=== PATIENT | female | born 1995 | race Caucasian/White ===

== ENCOUNTER 2022-10-17 12:37 | Emergency (ER) | payer BC, MEDICAID, SELFPAY ==
--- NOTE | ~2022-10-17 | CT_ITS ---
EXAMINATION: CT ABDOMEN AND PELVIS WITHOUT CONTRAST CLINICAL INFORMATION: Flank pain with urination. COMPARISON: None TECHNIQUE: Multidetector volumetric imaging was performed from the superior aspect of the liver through the pubic symphysis. Sagittal and coronal reformatted images were obtained on the technologist's workstation. This CT examination was performed using dose optimization techniques as appropriate, variously including the following: *Automated exposure control *Adjustment of mA and/or kV according to patient size (this includes techniques or standardized protocols for targeted exams where dose is matched to indication/reason for exam; i.e. extremities or head) *Use of iterative reconstruction technique DLP: 252 mGy-cm FINDINGS: LUNG BASES: The visualized lung bases are unremarkable. LIVER, GALLBLADDER, AND BILIARY TREE: The liver is normal in size, shape, and attenuation. No focal hepatic lesion or biliary ductal dilatation is present. The gallbladder is unremarkable with no evidence of radiopaque gallstones, gallbladder wall thickening, or obvious pericholecystic inflammatory changes. PANCREAS: Unremarkable. SPLEEN: Unremarkable. ADRENAL GLANDS: Unremarkable. KIDNEYS AND URETERS: The kidneys are normal in size, shape, and attenuation. No hydronephrosis, hydroureter, or calculi seen. No perinephric stranding. BLADDER: Unremarkable. GASTROINTESTINAL TRACT: The small and large bowel are unremarkable. The appendix is unremarkable. ABDOMINAL WALL: No significant hernia is appreciated. LYMPH NODES: Normal. VASCULAR: Unremarkable. PELVIC VISCERA: Uterus is anteverted. There is a right adnexal cyst measuring 2.5 cm. Density measurement 7 Hounsfield units, simple fluid. No inflammatory changes in the adnexa. Small volume of simple fluid in the cul-de-sac which can be physiologic. OSSEOUS STRUCTURES: Unremarkable. CT/CT abdomen pelvis wo IV con IMPRESSION: 1. No acute abnormality CT scan abdomen pelvis. Normal kidneys, ureter and bladder. 2. 2.5 cm right adnexal cyst. Fleischner guidelines were followed.
--- NOTE | ~2022-10-17 | US_ITS ---
EXAMINATION: US PELVIS CLINICAL INFORMATION: Abdominal pain with question of a portion of ovary COMPARISON: CT abdomen pelvis earlier today TECHNIQUE: Ultrasound of the pelvis is performed using both transabdominal and transvaginal transducers along with Doppler. Transvaginal imaging is performed due to inadequate visualization transabdominally. FINDINGS: Uterus: The uterus is anteverted and measures 7.8 x 2.8 x 3.8 cm. The double wall endometrial thickness is 0.8 mm. The uterus is smooth in contour and has normal myometrial echogenicity. No visible fibroid. Nabothian cysts are present in the cervix. Adnexa: Both ovaries are visualized. There is normal color flow to the adnexa. There is no ovarian torsion. There is no pelvic ascites or fluid collection. Right ovary measures 3.2 x 2.8 x 2.3 cm for a volume of 10.8 mL which includes a 2.7 x 1.7 x 2.2 cm benign simple left ovarian cyst. Left ovary measures 2.8 x 1.4 x 1.5 cm for a volume of 3.1 mL and appears normal US/US pelvic ovarian doppler IMPRESSION: Negative exam. Benign right ovarian cyst needs no further follow-up. No evidence of ovarian torsion.
--- NOTE | ~2022-10-17 | US_ITS ---
EXAMINATION: US PELVIS CLINICAL INFORMATION: Abdominal pain with question of a portion of ovary COMPARISON: CT abdomen pelvis earlier today TECHNIQUE: Ultrasound of the pelvis is performed using both transabdominal and transvaginal transducers along with Doppler. Transvaginal imaging is performed due to inadequate visualization transabdominally. FINDINGS: Uterus: The uterus is anteverted and measures 7.8 x 2.8 x 3.8 cm. The double wall endometrial thickness is 0.8 mm. The uterus is smooth in contour and has normal myometrial echogenicity. No visible fibroid. Nabothian cysts are present in the cervix. Adnexa: Both ovaries are visualized. There is normal color flow to the adnexa. There is no ovarian torsion. There is no pelvic ascites or fluid collection. Right ovary measures 3.2 x 2.8 x 2.3 cm for a volume of 10.8 mL which includes a 2.7 x 1.7 x 2.2 cm benign simple left ovarian cyst. Left ovary measures 2.8 x 1.4 x 1.5 cm for a volume of 3.1 mL and appears normal US/US pelvic and transvaginal IMPRESSION: Negative exam. Benign right ovarian cyst needs no further follow-up. No evidence of ovarian torsion.
[2022-10-17 15:01] VITALS: BP 105/61; PULSE 82; RESP 16; TEMP 36.4; O2SAT 100; BMI 21.2
--- NOTE | 2022-10-17 15:01 | ED.GENADULT ---
HPI - General Adult General Chief complaint: Urogenital-Female <Shanta Wheeler MD - Last Filed: 10/17/22 15:05> Stated complaint: Passing Kidney Stone <Shanta Wheeler MD - Last Filed: 10/17/22 15:05> Time Seen by Provider: 10/17/22 19:48 <Shanta Wheeler MD - Last Filed: 10/17/22 15:05> Source: patient <JOY Sherman - Last Filed: 10/17/22 20:12> Mode of arrival: ambulatory <JOY Sherman - Last Filed: 10/17/22 20:12> Limitations: no limitations <JOY Sherman - Last Filed: 10/17/22 20:12> History of Present Illness HPI narrative: 26 year old female presents w/ 1 day of colicky right flank pain intermittent and severe in nature. Tells me pain is sharp 4/10 w/o radiation. Hx of stones which felt similar. Hasent taken meds for this at home. Reports subjective fevers/ chills. Reports burning with urination. No concerns for STDs or . Patient denies vomiting/fevers, numbness, tingling, chest pain, shortness of breath, saddle paresthesias, hx of back surgeries, hx of IVDA, urine/bowel incontinence/ retention, vaginal dc or bleeding, pain with intercourse, hx of ovarian cyst. <JOY Sherman - Last Filed: 10/17/22 20:12> Related Data Allergies/adverse reactions: Allergies Allergy/AdvReac Type Severity Reaction Status Date / Time No Known Allergies Allergy Verified 10/17/22 15:00 <Shanta Wheeler MD - Last Filed: 10/17/22 15:05> Review of Systems Review of Systems: Constitutional : No Weight loss, + Fever, + Chills, + Fatigue, + Malaise ENT/Mouth : No sore throat, No Rhinorrhea Eyes: No Eye Pain, No Swelling, No Redness Cardiovascular : No Chest Pain, No SOB, No Dyspnea on Exertion, No Orthopnea, No Edema, No Palpitations Respiratory : No Cough, No Sputum, No Wheezing Gastrointestinal : No Nausea, No Vomiting, No Diarrhea, No Constipation, No abdominal Pain, No Hematochezia, No Melena Genitourinary : + Dysuria, No Urinary Frequency, No Hematuria, Musculoskeletal : No joint pain, No Myalgias, No Joint Swelling, +flank pain Skin : No Skin Lesions, No rash Neuro : No Weakness, No Numbness, No Dizziness, No Headache Psych : No Anxiety/Panic, No Depression All other systems reviewed and are negative <JOY Sherman - Last Filed: 10/17/22 20:12> Yes all other systems are reviewed and are negative <JOY Sherman - Last Filed: 10/17/22 20:12> [facility] Past Medical History Attestation statement: The following information was validated with the patient. <JOY Sherman - Last Filed: 10/17/22 20:12> Source: old records reviewed and nursing notes reviewed <JOY Sherman - Last Filed: 10/17/22 20:12> Social History Social History: Social History Advance Directives: No Advance Directives Information Provided: No <Shanta Wheeler MD - Last Filed: 10/17/22 15:05> Physical Exam ED Vital Signs: Vital Signs - 24 hr 10/17/22 15:01 Temperature 97.6 F Pulse Rate 82 Respiratory Rate 16 Blood Pressure 105/61 Pulse Oximetry 100 Oxygen Delivery Method Room Air BMI result Body Mass Index 21.2 <Shanta Wheeler MD - Last Filed: 10/17/22 15:05> Vital Signs - 24 hr 10/17/22 15:01 Temperature 97.6 F Pulse Rate 82 Respiratory Rate 16 Blood Pressure 105/61 Pulse Oximetry 100 Oxygen Delivery Method Room Air BMI result Body Mass Index 21.2 vss <JOY Sherman - Last Filed: 10/17/22 20:12> Appearance: Alert.? Oriented X3.? No acute distress.?Non toxic appearing Head: Normocephalic, atraumatic, no step-offs or deformities Eyes: Pupils equal, round and reactive to light.? CVS: Normal heart rate and rhythm.? Pulses normal.? Respiratory: No respiratory distress.? Breath sounds normal.? Abdomen: Soft and nontender.? Skin: Skin warm and dry.? Normal skin color.? Normal skin turgor.? Extremities: No lower extremity edema.? No calf ttp. 5/5 strength to bilateral upper and lower extremities Back: No CVA tenderness bilaterally Neuro: Oriented X 3.? No motor deficit.? No sensory deficit. CN 2-12 intact <JOY Sherman - Last Filed: 10/17/22 20:12> Course Course Course Narrative: 26F had burning with urination and now having right flank pain in the kidney area and +hx of renal colic. Patient denies vomiting/fevers but having nausea and chills VS reviewed. GEN: Appears well, NAD HEENT: NC/At, Ears, wnl, pharynx wnl, no adenopathy. LUNGS: CTAB w/o wheeze/rhonchi/rales CVS: RRR, no murmurs ABD: NT/ND EXT: warm, dry Suspect pyelonephritis>>renal colic. <Shanta Wheeler MD - Last Filed: 10/17/22 15:05> Reevaluation(s) Reevaluation #1: UA clean. Preg negative. Pelvic and transvaginal and ovarian w/ Doppler no signs of torsion, benign r. ovarian cyst no need for further fu, informed patient of results and advised to fu w/ obgyn. Adnexal cyst on abd and pelvis ct no other findings no sins of stones or pylo. Likely cystitis or MSK pain. Plan dc home with PCP and OBGYN fu. Advised to return w/ new or worseneing sx. Comfortable w/ dc with strict return percautions. <JOY Sherman - Last Filed: 10/17/22 20:12> Time: 20:11 <JOY Sherman - Last Filed: 10/17/22 20:12> Medical Decision Making MDM Narrative Medical decision making narrative: 1997 26 year old f w/ r. flank pain and dysuria X1 day. hx of stones PE benign Likley cystitis vs uti vs stone. Unlikley pylo. No signs of acute abdomen. Unlikley ectopic or torsion. Will r/o ovarian cysts Plan- urine imaging <JOY Sherman - Last Filed: 10/17/22 20:12> Medical Records Medical records reviewed: Yes I reviewed the patient's medical records. <JOY Sherman - Last Filed: 10/17/22 20:12> Lab Data Lab results reviewed: Yes I reviewed the patient's lab results. <JOY Sherman - Last Filed: 10/17/22 20:12> Labs: Lab Results 10/17/22 10/17/22 Range/Units 15:15 15:15 Urine Color Yellow Urine Appearance Cloudy Urine pH 7.5 (5.0-9.0) Ur Specific [place] 1.010 (1.005-1.025) Urine Protein Negative (Neg-Trace) mg/dL Urine Glucose (UA) Negative (Negative) mg/dL Urine Ketones Negative (Negative) mg/dL Urine Blood Negative (Negative) Urine Nitrite Negative (Negative) Ur Leukocyte Esterase Negative (Negative) Urine Test NEGATIVE (NEGATIVE) <Shanta Wheeler MD - Last Filed: 10/17/22 15:05> Lab Results 10/17/22 10/17/22 Range/Units 15:15 15:15 Urine Color Yellow Urine Appearance Cloudy Urine pH 7.5 (5.0-9.0) Ur Specific [place] 1.010 (1.005-1.025) Urine Protein Negative (Neg-Trace) mg/dL Urine Glucose (UA) Negative (Negative) mg/dL Urine Ketones Negative (Negative) mg/dL Urine Blood Negative (Negative) Urine Nitrite Negative (Negative) Ur Leukocyte Esterase Negative (Negative) Urine Test NEGATIVE (NEGATIVE) <JOY Sherman - Last Filed: 10/17/22 20:12> Critical Care Time Critical Care Time Critical Care Time: No <JOY Sherman - Last Filed: 10/17/22 20:12> Discharge Plan Discharge Clinical Impression: Cystitis, Flank pain, Biliary colic, Ovarian cyst <Shanta Wheeler MD - Last Filed: 10/17/22 15:05> Patient Disposition: Home, Self-Care <Shanta Wheeler MD - Last Filed: 10/17/22 15:05> Instructions: Urinary Tract Infection in Women (ED), Abdominal Pain (ED), Flank Pain (ED) <Shanta Wheeler MD - Last Filed: 10/17/22 15:05> Additional Instructions: Take your medications as prescribed. If you were prescribed antibiotics today, it is important that you take your medication to their entirety, do not skip any doses, do not finish them early. Follow-up with your primary care provider this week. Follow up with OBGYN Return to the emergency department with new or worsening symptoms. In case of emergency call 911 You can take ibuprofen every 6 hours tylenol every 4 hours as needed for pain or discomfort Urine showed no infection. CT/CT abdomen pelvis wo IV con IMPRESSION: 1.? No acute abnormality CT scan abdomen pelvis. Normal kidneys, ureter and bladder. 2.? 2.5 cm right adnexal cyst. ? Fleischner guidelines were followed .US/US pelvic ovarian doppler IMPRESSION: Negative exam. Benign right ovarian cyst needs no further follow-up. No evidence of ovarian torsion. ? <Shanta Wheeler MD - Last Filed: 10/17/22 15:05> Referrals: Charity Rick MD [Primary Care Provider] - 2 days Grayson Nguyễn MD [Physician] - 2 weeks <Shanta Wheeler MD - Last Filed: 10/17/22 15:05> Stand Alone Forms: Work/School Release <Shanta Wheeler MD - Last Filed: 10/17/22 15:05>
[2022-10-17 15:23] LABS: Appearance Urine Cloudy; Color Urine Yellow; Glucose Urine UA Negative (Negative); Leukocyte Esterase Urine Negative (Negative); Nitrite Urine Negative (Negative); PH 7.5 (5.0-9.0); Urine Blood Negative (Negative); Urine Ketones Negative (Negative); Urine Protein Negative (Neg-Trace)
[2022-10-17 15:25] LABS: UPreg QC Valid YES; Urine Pregnancy NEGATIVE (NEGATIVE)
--- NOTE | 2022-10-17 19:48 | ED_ITS ---
HPI - Female Genitourinary General Chief complaint: Urogenital-Female Stated complaint: Passing Kidney Stone Time Seen by Provider: 10/17/22 19:48 Source: patient Mode of arrival: ambulatory Limitations: no limitations Related Data Allergies Allergy/AdvReac Type Severity Reaction Status Date / Time No Known Allergies Allergy Verified 10/17/22 15:00 Physical Exam Vital Signs: Vital Signs: Last Vital Signs Temp 97.6 F 10/17/22 15:01 Pulse 82 10/17/22 15:01 Resp 16 10/17/22 15:01 BP 105/61 10/17/22 15:01 Pulse Ox 100 10/17/22 15:01 O2 Del Method 10/17/22 15:01 BMI result Body Mass Index 21.2 MDM - Female Genitourinary Lab Data Labs: Lab Results 10/17/22 10/17/22 Range/Units 15:15 15:15 Urine Color Yellow Urine Appearance Cloudy Urine pH 7.5 (5.0-9.0) Ur Specific [place] 1.010 (1.005-1.025) Urine Protein Negative (Neg-Trace) mg/dL Urine Glucose (UA) Negative (Negative) mg/dL Urine Ketones Negative (Negative) mg/dL Urine Blood Negative (Negative) Urine Nitrite Negative (Negative) Ur Leukocyte Esterase Negative (Negative) Urine Test NEGATIVE (NEGATIVE)
== END 2022-10-17 20:28 | disposition home or self-care (01) ==
PROVIDERS: Student in an Organized Health Care Education/Training Program; Emergency Provider Emergency Medicine; PCP Pediatrics
DX: N20.0 Calculus of kidney (principal); R10.9 Unspecified abdominal pain; R10.2 Pelvic and perineal pain; Z79.899 Other long term (current) drug therapy
CPT/HCPCS: 74176; 76830; 76856; 81003; 81025; 93975; 99282; 99284

== ENCOUNTER 2023-01-07 01:44 | Emergency (ER) | payer BC, MEDICAID, SELFPAY ==
[2023-01-07 01:51] VITALS: BP 107/67; PULSE 80; RESP 17; TEMP 36.5; O2SAT 97; BMI 19.1
[2023-01-07 02:56] LABS: MANUAL DIFF FLAG NO
[2023-01-07 02:57] LABS: Basophils Percent Auto 0.3 % (0-2); Eosinophils Percent Auto 0.3 % (0-4); Hematocrit 40.4 % (37.0-47.0); Imm Gran Abs Auto 0.01 X10*3/uL (0.00-0.03); Imm Gran Pct Auto 0.1 % (0.0-0.4); Lymphocytes Absolute Auto 2.1 X10*3/uL (1.2-4.9); Lymphocytes Percent Auto 27.1 % (20-40); Mean Corpuscular HGB Conc 34.7 g/dl (31.0-35.0); Mean Corpuscular Hemoglobin 29.5 pg (27.0-33.0); Mean Corpuscular Volume 85.2 fL (80.0-98.0); Mean Platelet Volume 10.5 fL (9.4-12.3); Monocytes Absolute Auto 0.5 X10*3/uL (0.1-1.2); Neutrophils Absolute Auto 5.2 x10*3/uL (2.0-8.3); Neutrophils Percent Auto 66.2 % (45-73); Platelet Count 238 X10*3/uL (160-400); Red Blood Count 4.74 X10*6/uL (4.20-5.50); Red Cell Distribution Width 12.1 % (11.0-16.0); White Blood Count 7.8 X10*3/uL (4.8-10.8)
[2023-01-07 03:14] LABS: COVID-19 Test Negative (Negative); IDNOW Serial# BCCEAD1C
[2023-01-07 03:15] LABS: Alanine Aminotransferase 14 U/L (0-31); Albumin Level 4.6 g/dL (3.5-5.0); Alkaline Phosphatase 39 U/L (39-117); Anion Gap 19 (12-20); Aspartate Amino Transferase 23 U/L (5-31); Bilirubin Total 0.5 mg/dL (0.0-1.0); Blood Urea Nitrogen 7 mg/dL (9-16); Calcium 9.2 mg/dL (8.4-10.2); Carbon Dioxide 18 mmol/L (22-29); Chloride 106 mmol/L (96-108); Creatinine Clr Calc Pharmacy 79.1; Estimated Glomerular Filt Rate > 60; Glucose Random 117 mg/dL (60-115); Potassium 3.9 mmol/L (3.3-5.1); Sodium 139 mmol/L (135-145); Total Protein 7.5 g/dL (6.5-8.0)
[2023-01-07 03:25] VITALS: BP 101/56; PULSE 71; RESP 19; TEMP 36.8; O2SAT 98
--- NOTE | 2023-01-07 04:55 | ED_ITS ---
HPI - Dizziness General Chief Complaint: Dizziness Stated Complaint: dizziness, seeing spots, started new meds Time Seen by Provider: 01/07/23 04:54 Source: patient Mode of arrival: ambulatory Limitations: no limitations History of Present Illness HPI Narrative: Patient healthy otherwise been nauseated and vomiting for last 48 hours with more than 15 times and had same amount of watery diarrhea with abdominal cramps patient used Flagyl 1 week ago. No recent travel no bad food intake today prior to arrival patient was standing felt lightheaded and passed out without any significant injury Related Data Previous Rx's Medication Instructions Recorded nitrofurantoin 100 mg PO BID 7 days #14 caps 10/17/22 monohydrate/macrocrystals 100 mg capsule (Macrobid) loperamide 2 mg tablet (Imodium 2 mg PO Q6H PRN loose stool #14 01/07/23 A-D) tabs ondansetron 4 mg disintegrating 4 mg PO Q6-8H PRN nausea and 01/07/23 tablet vomiting #10 tabs Allergies Allergy/AdvReac Type Severity Reaction Status Date / Time No Known Allergies Allergy Verified 01/07/23 02:01 Review of Systems Review of Systems: Yes all other systems are reviewed and are negative [facility] Social History Social History Smoked in Last 30 Days: No Advance Directives: No Physical Exam Vital Signs: Vital Signs: Last Vital Signs Temp 98.4 F 01/07/23 06:11 Pulse 80 01/07/23 06:11 Resp 19 01/07/23 06:11 BP 103/59 L 01/07/23 06:11 Pulse Ox 99 01/07/23 06:11 O2 Del Method 01/07/23 06:11 BMI result Body Mass Index 19.1 Appearance: Alert. Oriented X3. No acute distress. Eyes: PERRLA, No Nystagmus no pallor or icterus ENT: Pharynx normal. Oral Mucosa moist Neck: Normal inspection. Neck supple. CVS: Normal heart rate and rhythm. Pulses normal. Respiratory: No respiratory distress. Equal air entry bilateral, no wheezing/ rales/rhonchi Abdomen: Soft and nontender. Bowel sounds are present, no mass palpable, no CVA tenderness Skin: Skin warm and dry. Normal skin color. Normal skin turgor. Extremities: No lower extremity edema. No calf tenderness Neuro: Oriented X 3. No motor deficit. No sensory deficit.No cerebellar signs , cranial nerves II-XII intact Medications Administered Discontinued Medications Generic Name Dose Route Start Last Admin Trade Name Akila PRN Reason Stop Dose Admin Sodium Chloride 1,000 mls @ 999 mls/hr 01/07/23 05:06 01/07/23 06:24 Ns IV 01/07/23 06:06 Infused .Q1H1M ONE Infusion Loperamide HCl 4 mg 01/07/23 05:06 01/07/23 05:13 Loperamide Hcl 2 Mg Capsule PO 01/07/23 05:07 4 mg ONCE ONE Administration Ondansetron HCl 4 mg 01/07/23 05:06 01/07/23 05:13 Ondansetron Hcl 4 Mg/2 Ml Vial IVPUSH 01/07/23 05:07 4 mg ONCE ONE Administration Medical Decision Making Medical Decision Making [facility] Narrative: Patient with acute gastroenteritis with normal labs likely viral ? norovirus feeling better after IV fluids and Zofran will discharge patient home advised to take medication as advised and drink plenty of fluids Patient able to take p.o. fluids and had Jell-O in the ER Lab Data MDM Lab Attestation statement: I reviewed the patient's lab results. 01/07/23 02:52 01/07/23 02:52 Labs: Lab Results 01/07/23 01/07/23 01/07/23 Range/Units 02:52 02:52 02:52 WBC 7.8 (4.8-10.8) X10*3/uL RBC 4.74 (4.20-5.50) X10*6/uL Hgb 14.0 (12.0-16.0) g/dl Hct 40.4 (37.0-47.0) % MCV 85.2 (80.0-98.0) fL MCH 29.5 (27.0-33.0) pg MCHC 34.7 (31.0-35.0) g/dl RDW 12.1 (11.0-16.0) % Plt Count 238 (160-400) X10*3/uL MPV 10.5 (9.4-12.3) fL Immature Gran % (Auto) 0.1 (0.0-0.4) % Neut % (Auto) 66.2 (45-73) % Lymph % (Auto) 27.1 (20-40) % [place] % (Auto) 6.0 (2-11) % Eos % (Auto) 0.3 (0-4) % Baso % (Auto) 0.3 (0-2) % Lymph # (Auto) 2.1 (1.2-4.9) X10*3/uL [place] # (Auto) 0.5 (0.1-1.2) X10*3/uL Eos # (Auto) 0.0 (0.0-0.4) X10*3/uL Baso # (Auto) 0.0 (0.0-0.2) X10*3/uL Abs Immat Gran (auto) 0.01 (0.00-0.03) X10*3/uL Absolute Neuts (auto) 5.2 (2.0-8.3) x10*3/uL Absolute Nucleated RBC 0.000 (0.0-0.012) X10*3/uL Nucleated RBC % (auto) 0.0 (0.0-0.2) /100WBC Sodium 139 (135-145) mmol/L Potassium 3.9 (3.3-5.1) mmol/L Chloride 106 (96-108) mmol/L Carbon Dioxide 18 L (22-29) mmol/L Anion Gap 19 (12-20) BUN 7 L (9-16) mg/dL Creatinine 0.74 (0.5-1.4) mg/dL Estim Creat Clear Calc 79.1 Estimated GFR > 60 Random Glucose 117 H (60-115) mg/dL Calcium 9.2 (8.4-10.2) mg/dL Total Bilirubin 0.5 (0.0-1.0) mg/dL AST 23 (5-31) U/L ALT 14 (0-31) U/L Alkaline Phosphatase 39 (39-117) U/L Total Protein 7.5 (6.5-8.0) g/dL Albumin 4.6 (3.5-5.0) g/dL COVID-19 (SEJAL) Negative (Negative) COVID-19 Clin Com See Note Discharge Plan Discharge Clinical Impression: Gastroenteritis Patient Disposition: Home, Self-Care Instructions: Gastroenteritis (ED) Additional Instructions: Drink plenty of fluids Medicine for nausea and diarrhea as prescribed Follow with PCP if not better Prescriptions: New ondansetron 4 mg tablet,disintegrating 4 mg PO Q6-8H PRN (Reason: nausea and vomiting) Qty: 10 0RF loperamide [Imodium A-D] 2 mg tablet 2 mg PO Q6H PRN (Reason: loose stool) Qty: 14 0RF No Action nitrofurantoin monohyd/m-cryst [Macrobid] 100 mg capsule 100 mg PO BID 7 Days Qty: 14 0RF Rx Instructions: must administer with a meal/food
[2023-01-07] MEDS: ondansetron HCL 4 MG/2 ML VIAL IVPUSH (05:13)
[2023-01-07] MEDS: Loperamide HCl 2 MG CAPSULE 4 MG PO (05:13)
[2023-01-07] MEDS: 0.9 % Sodium Chloride 1,000 ML 999 ML IV (05:14)
[2023-01-07 06:11] VITALS: BP 103/59; PULSE 80; RESP 19; TEMP 36.9; O2SAT 99
== END 2023-01-07 06:50 | disposition home or self-care (01) ==
PROVIDERS: Emergency Provider Internal Medicine
DX: K52.9 Noninfective gastroenteritis and colitis, unspecified (principal); R42 Dizziness and giddiness; Z20.822 Contact with and (suspected) exposure to COVID-19; Z20.828 Contact with and (suspected) exposure to other viral communicable diseases; Z79.899 Other long term (current) drug therapy
CPT/HCPCS: 80053; 85025; 87635; 96361; 96374; 99284; J2405

== ENCOUNTER 2024-03-02 22:47 | Emergency (ER) | payer BC, OTHER, SELFPAY ==
[2024-03-02 23:01] VITALS: BP 104/49; PULSE 116; RESP 20; TEMP 36.9; O2SAT 100; BMI 21.2
[2024-03-02 23:22] LABS: MANUAL DIFF FLAG NO
[2024-03-02 23:24] LABS: Basophils Percent Auto 0.3 % (0-2); Eosinophils Absolute Auto 0.1 X10*3/uL (0.0-0.4); Eosinophils Percent Auto 0.9 % (0-4); Hematocrit 37.7 % (37.0-47.0); Hemoglobin 13.4 g/dl (12.0-16.0); Imm Gran Abs Auto 0.04 X10*3/uL (0.00-0.03); Imm Gran Pct Auto 0.3 % (0.0-0.4); Lymphocytes Absolute Auto 2.8 X10*3/uL (1.2-4.9); Lymphocytes Percent Auto 22.9 % (20-40); Mean Corpuscular HGB Conc 35.5 g/dl (31.0-35.0); Mean Corpuscular Hemoglobin 29.5 pg (27.0-33.0); Mean Corpuscular Volume 82.9 fL (80.0-98.0); Mean Platelet Volume 10.9 fL (9.4-12.3); Monocytes Absolute Auto 0.7 X10*3/uL (0.1-1.2); Monocytes Percent Auto 5.4 % (2-11); Neutrophils Absolute Auto 8.5 x10*3/uL (2.0-8.3); Neutrophils Percent Auto 70.2 % (45-73); Platelet Count 203 X10*3/uL (160-400); Red Blood Count 4.55 X10*6/uL (4.20-5.50); Red Cell Distribution Width 12.4 % (11.0-16.0); White Blood Count 12.1 X10*3/uL (4.8-10.8)
[2024-03-02 23:47] LABS: Alanine Aminotransferase 9 U/L (0-31); Alkaline Phosphatase 39 U/L (39-117); Anion Gap 12 (12-20); Aspartate Amino Transferase 12 U/L (5-31); Bilirubin Total 0.1 mg/dL (0.0-1.0); Blood Urea Nitrogen 6 mg/dL (9-16); Calcium 8.7 mg/dL (8.4-10.2); Carbon Dioxide 19 mmol/L (22-29); Chloride 110 mmol/L (96-108); Estimated Glomerular Filt Rate > 60; Glucose Random 116 mg/dL (60-115); HCG Quantitative < 2 mIU/mL; Sodium 138 mmol/L (135-145); Total Protein 6.7 g/dL (6.5-8.0)
[2024-03-02 23:56] LABS: Appearance Urine Turbid; Color Urine Dark Yellow; Glucose Urine UA Negative (Negative); Leukocyte Esterase Urine Negative (Negative); Nitrite Urine Negative (Negative); PH >= 9.0 (5.0-9.0); Urine Blood Negative (Negative); Urine Ketones Trace mg/dL (Negative); Urine Protein Trace mg/dL (Neg-Trace)
[2024-03-03 00:32] LABS: Influenza A PCR NEGATIVE (Negative); Influenza B PCR NEGATIVE (Negative); Resp Syncy Virus RNA Qual PCR NEGATIVE (Negative); SARS COV2 PCR INHOUSE POSITIVE (Negative)
[2024-03-03 01:59] VITALS: BP 105/49; PULSE 86; RESP 18; O2SAT 99
[2024-03-03 04:00] VITALS: BP 95/45; PULSE 79; RESP 16; TEMP 37.1; O2SAT 95
--- NOTE | 2024-03-03 05:28 | ED.GENADULT ---
HPI - General Adult General Chief complaint: Abdominal Pain Stated complaint: abd pain vomiting ,black stools Time Seen by Provider: 03/03/24 05:13 Source: patient Mode of arrival: ambulatory Limitations: no limitations History of Present Illness HPI narrative: 28-year-old female with a history of asthma who presents emergency department for evaluation of lightheadedness, dizziness, feeling unwell, nausea, vomiting x3, shortness of breath, shaking chills, myalgias and arthralgias. Patient states she began to feel ill yesterday and her symptoms got worse today. She just states that she does not feel like herself. She states she has had shaking chills fever. She feels fatigued. She feels short of breath. She denied cough. She states she has had myalgias and arthralgias. She states she had nausea with vomiting x3. She she was concerned that her symptoms are getting worse so she came to the emergency department to be seen. Patient states she is received 2 COVID vaccinations. She states she has also had COVID infection x3 in the past. Related Data Previous Rx's ?Medication ?Instructions ?Recorded nitrofurantoin 100 mg PO BID 7 days #14 caps 10/17/22 monohydrate/macrocrystals 100 mg capsule (Macrobid) loperamide 2 mg tablet (Imodium 2 mg PO Q6H PRN loose stool #14 01/07/23 A-D) tabs ondansetron 4 mg disintegrating 4 mg PO Q6-8H PRN nausea and 01/07/23 tablet vomiting #10 tabs ondansetron 4 mg disintegrating 4 mg PO Q6-8H PRN nausea and 03/03/24 tablet vomiting #14 tabs Allergies Allergy/AdvReac Type Severity Reaction Status Date / Time metronidazole [From Flagyl] Allergy Nausea Verified 03/02/24 23:07 sulfamethoxazole AdvReac Nausea Verified 03/02/24 23:07 [From Bactrim] trimethoprim [From Bactrim] AdvReac Nausea Verified 03/02/24 23:07 Review of Systems Review of Systems: Yes all other systems are reviewed and are negative PMFSH Social History Social History Alcohol intake: current Alcohol intake frequency: a few times a month Smoked in Last 30 Days: No Use of substances other than those prescribed or required for medical reasons: No Advance Directives: No Advance Directives Information Provided: Yes Patient : No Physical Exam ED Vital Signs: Vital Signs - 24 hr 03/02/24 23:01 03/03/24 01:59 03/03/24 04:00 Temperature 98.4 F 98.7 F Pulse Rate 116 H 86 79 Respiratory Rate 20 18 16 Blood Pressure 104/49 L 105/49 L 95/45 L Pulse Oximetry 100 99 95 Oxygen Delivery Method Room Air Room Air Room Air BMI result Body Mass Index 21.2 Vital signs were normal Exam: General: Awake, alert in no distress Head: Normocephalic, atraumatic EENT: PERRL, Lids normal, sclera normal, conjunctiva normal, nose normal , ears normal, throat without erythema or exudates Neck: Supple, no adenopathy Lung: breath sounds symmetric, no wheezing, rales or rhonchi Chest: symmetric movement, nontender Heart: regular rate and rhythm, normal S1, S2 no murmurs or rubs Abdomen: soft, non-tender, nondistended, normal bowel sounds Back: no vertebral tenderness, no CVAT Extremities: no deformities, moves all extremities symmetrically Neuro: Awake, alert, oriented, normal speech, cranial nerves intact, moves all extremities symmetrically Psych: Pleasant, cooperative Medications Administered Discontinued Medications Generic Name Dose Route Start Last Admin Trade Name Freq PRN Reason Stop Dose Admin Ondansetron HCl 4 mg 03/03/24 05:28 03/03/24 05:32 Ondansetron Odt 4 Mg Tab.Malikdis TRANSLINGU 03/03/24 05:29 4 mg ONCE STA Administration Medical Decision Making Medical Decision Making [facility] Narrative: 28-year-old female with a history of asthma who presents emergency department for evaluation of fatigue, not feeling well, subjective fever and chills, myalgias, arthralgias, shortness of breath, lightheadedness and dizziness x2 days. Vital signs were normal. Physical examination was unremarkable. Differential diagnosis: ?Includes but is not limited to viral syndrome, electrolyte abnormalities, COVID-19, influenza, RSV Following evaluation was ordered: CBC, CMP, quantitative beta-hCG, urinalysis, COVID-19, influenza, RSV Patient was initially treated with the following: Zofran 4 mg ODT Course: My interpretation patient's laboratory evaluation is as follows: Elevated white blood count 27028. Low potassium 3.0, low bicarb 19, elevated glucose 116. LFTs were normal. Lipase was normal. Quantitative beta-hCG was below detectable limits. Urinalysis was negative. COVID-19 was positive. Patient's symptoms are consistent with COVID-19 infection, at this time I do not think that she has pneumonia. The patient has had to COVID-19 vaccinations and has had at least 3 COVID-19 infections which suggests that she may have significant immunity and is less likely to get severely ill from COVID-19. Given her age and her only significant risk factors being asthma, I do not think that she would benefit from Paxlovid however I did discuss treatment with the patient. After discussion the patient states that she does not want to start Paxlovid at this time. Patient was given prescription for Zofran 0 advised to take Tylenol, ibuprofen and stay on a AMRIK diet for the next 24 hours. She was given printed and verbal instructions and discharged home. Admission/Observation Consideration of admission/observation: Escalation of care including admission/observation considered Lab Data MDM Lab Attestation statement: I reviewed the patient's lab results. 03/02/24 23:15 03/02/24 23:15 Labs: Lab Results 03/02/24 03/02/24 Range/Units 23:15 23:48 WBC 12.1 H (4.8-10.8) X10*3/uL RBC 4.55 (4.20-5.50) X10*6/uL Hgb 13.4 (12.0-16.0) g/dl Hct 37.7 (37.0-47.0) % MCV 82.9 (80.0-98.0) fL MCH 29.5 (27.0-33.0) pg MCHC 35.5 H (31.0-35.0) g/dl RDW 12.4 (11.0-16.0) % Plt Count 203 (160-400) X10*3/uL MPV 10.9 (9.4-12.3) fL Immature Gran % (Auto) 0.3 (0.0-0.4) % Neut % (Auto) 70.2 (45-73) % Lymph % (Auto) 22.9 (20-40) % [place] % (Auto) 5.4 (2-11) % Eos % (Auto) 0.9 (0-4) % Baso % (Auto) 0.3 (0-2) % Lymph # (Auto) 2.8 (1.2-4.9) X10*3/uL [place] # (Auto) 0.7 (0.1-1.2) X10*3/uL Eos # (Auto) 0.1 (0.0-0.4) X10*3/uL Baso # (Auto) 0.0 (0.0-0.2) X10*3/uL Abs Immat Gran (auto) 0.04 H (0.00-0.03) X10*3/uL Absolute Neuts (auto) 8.5 H (2.0-8.3) x10*3/uL Absolute Nucleated RBC 0.000 (0.0-0.012) X10*3/uL Nucleated RBC % (auto) 0.0 (0.0-0.2) /100WBC Sodium 138 (135-145) mmol/L Potassium 3.0 L (3.3-5.1) mmol/L Chloride 110 H (96-108) mmol/L Carbon Dioxide 19 L (22-29) mmol/L Anion Gap 12 (12-20) BUN 6 L (9-16) mg/dL Creatinine 0.70 (0.5-1.4) mg/dL Estim Creat Clear Calc 83.0 Estimated GFR > 60 Random Glucose 116 H (60-115) mg/dL Calcium 8.7 (8.4-10.2) mg/dL Total Bilirubin 0.1 (0.0-1.0) mg/dL AST 12 (5-31) U/L ALT 9 (0-31) U/L Alkaline Phosphatase 39 (39-117) U/L Total Protein 6.7 (6.5-8.0) g/dL Albumin 4.0 (3.5-5.0) g/dL Beta HCG, Quant < 2 mIU/mL Urine Color Dark Yellow Urine Appearance Turbid Urine pH >= 9.0 (5.0-9.0) Ur Specific [place] 1.020 (1.005-1.025) Urine Protein Trace (Neg-Trace) mg/dL Urine Glucose (UA) Negative (Negative) mg/dL Urine Ketones Trace (Negative) mg/dL Urine Blood Negative (Negative) Urine Nitrite Negative (Negative) Ur Leukocyte Esterase Negative (Negative) Influenza Type A (PCR) NEGATIVE (Negative) Influenza Type B (PCR) NEGATIVE (Negative) RSV RNA Qual (PCR) NEGATIVE (Negative) SARS-CoV-2 RNA (RT-PCR) POSITIVE A (Negative) Chronic Conditions Patient?s care impacted by: Other (Asthma) Discharge Plan Discharge Clinical Impression: COVID-19 virus infection Patient Disposition: Home, Self-Care Instructions: COVID-19 (Coronavirus Disease 2019) (ED) Additional Instructions: Your blood work was unremarkable Your COVID-19 test was positive. Your symptoms are consistent with early COVID infection. Take ibuprofen 200 mg pills, 2 pills every 6 hours as needed for pain or fever. Take Tylenol (acetaminophen) 500 mg pills, 1 pills every 6 hours as needed for pain or fever. Take Zofran ODT 4 mg pills, 1 pill dissolved in your mouth every 8 hours as needed for nausea and vomiting. Follow-up with your doctor in 2 days. Please return to the emergency department if your symptoms get worse or if you develop any symptoms that are concerning to you. Prescriptions: New ondansetron 4 mg tablet,disintegrating 4 mg PO Q6-8H PRN (Reason: nausea and vomiting) Qty: 14 0RF No Action nitrofurantoin monohyd/m-cryst [Macrobid] 100 mg capsule 100 mg PO BID 7 Days Qty: 14 0RF Rx Instructions: must administer with a meal/food ondansetron 4 mg tablet,disintegrating 4 mg PO Q6-8H PRN (Reason: nausea and vomiting) Qty: 10 0RF loperamide [Imodium A-D] 2 mg tablet 2 mg PO Q6H PRN (Reason: loose stool) Qty: 14 0RF Interventions: ED Discharge Assessment Last Done: 03/03/24 05:36 Discharge Date/Time: 03/03/24 05:37 Print Language: Sinhala
[2024-03-03] MEDS: Ondansetron ODT 4 MG TAB.RAPDIS TRANSLINGU (05:32)
[2024-03-03 05:36] VITALS: BP 106/46; PULSE 82; RESP 18; TEMP 36.9; O2SAT 96
== END 2024-03-03 05:37 | disposition home or self-care (01) ==
PROVIDERS: Emergency Provider Emergency Medicine Emergency Medical Services
DX: U07.1 COVID-19 (principal); J45.909 Unspecified asthma, uncomplicated
CPT/HCPCS: 0241U; 36415; 80053; 81003; 84702; 85025; 99283; 99284